=== PATIENT | male | born 1940 | race Asian ===

== ENCOUNTER → 2017-01-01 | Outpatient (CLI) | payer MEDICARE, MEDICAID ==
[~2017-01-01] MED LIST: ALLO100T30 PO; ASPI-621 PO; BOSE125T PO; CLOP75TA PO; FURO40TA6 PO; GEMF600T3 PO; INDO50CA PO; MACI10TA PO; METH4TAB PO; OMEP-110 PO; SPIR25TA PO
== END | disposition home or self-care (01) ==
LOC: CFH 09:59
PROVIDERS: ATTEND Internal Medicine Cardiovascular Disease
DX: I07.1 Rheumatic tricuspid insufficiency (principal); I35.8 Other nonrheumatic aortic valve disorders
CPT/HCPCS: 93306

== ENCOUNTER → 2017-10-21 | Outpatient (CLI) | payer MEDICARE, MEDICAID ==
[2017-10-21 15:55] LABS: ANION GAP 8 mmol/L (5-15); CALCIUM 8.7 mg/dL (8.5-10.1); CHLORIDE 101 mmol/L (98-107); CREATININE 1.31 mg/dL (0.7-1.3)
== END | disposition home or self-care (01) ==
LOC: CFH 14:25
PROVIDERS: ATTEND Internal Medicine Cardiovascular Disease
DX: I27.0 Primary pulmonary hypertension (principal); E78.2 Mixed hyperlipidemia; R06.02 Shortness of breath
CPT/HCPCS: 36415; 80048; 83880

== ENCOUNTER 2017-12-03 03:49 | Inpatient (IN) | payer MEDICARE, MEDICAID ==
[~2017-12-03] VITALS: Ht 165.1 cm; Wt 72.2 kg
[2017-12-03] MEDS ORDERED: SODIUM CHLORIDE FLUSH 10ML SYR IVF ONE (04:30)
[2017-12-03 04:38] LABS: ALANINE AMINOTRANSFERASE 51 U/L (12-78); ALBUMIN 3.9 g/dL (3.4-5.0); ANION GAP 4 mmol/L (5-15); CALCIUM 8.7 mg/dL (8.5-10.1); CHLORIDE 98 mmol/L (98-107); CREATININE 1.25 mg/dL (0.7-1.3)
[2017-12-03 04:42] LABS: ALKALINE PHOSPHATASE 105 U/L (45-117); BILIRUBIN,TOTAL 1.5 mg/dL (0.2-1.0); TOTAL PROTEIN 7.7 g/dL (6.4-8.2)
[2017-12-03 04:48] LABS: TROPONIN I 0.318 ng/mL (0.000-0.045)
[2017-12-03 04:58] LABS: MEAN CORPUSCULAR HEMOGLOBIN 31.6 pg (27.5-34.5); MEAN CORPUSCULAR HGB CONC 31.6 g/dL (33.2-36.2); RED BLOOD COUNT 6.28 x10^6/uL (4.38-5.82); RED CELL DISTRIBUTION WIDTH 15.4 % (9.4-14.8)
[2017-12-03] MEDS ORDERED: ASPIRIN 81 MG TABLET CHEW ONE (05:13)
[2017-12-03] MEDS ORDERED: ASPIRIN 81 MG TABLET CHEW PO ONE (05:30)
[2017-12-03] MEDS ORDERED: HEPARIN 5,000 UNITS/ML, 1ML IV ONE (05:30)
[2017-12-03 05:32] LABS: BASOPHILS # (AUTO) 0.02 x10^3/uL (0-0.1); BASOPHILS % (AUTO) 0 % (0-1); EOSINOPHILS # (AUTO) 0.18 x10^3/uL (0-0.4); EOSINOPHILS % (AUTO) 4 % (1-7); LYMPHOCYTES % (AUTO) 30 % (22-44); MD SCAN; MEAN PLATELET VOLUME 10.4 fL (7.4-10.4); MONOCYTES # (AUTO) 0.36 x10^3/uL (0.2-0.8); MONOCYTES % (AUTO) 8 % (2-9); NEUTROPHILS # (AUTO) 2.77 x10^3/uL (1.8-6.8); NEUTROPHILS % (AUTO) 59 % (42-75); PLATELET COUNT 74 x10^3/uL (130-400)
[2017-12-03] MEDS ORDERED: HEPARIN 5,000 UNITS/ML, 1ML ONE (05:34)
[2017-12-03] MEDS ORDERED: HEPARIN 25,000 UNITS/500ML PMX 500 ML ONE (05:35)
[2017-12-03 05:39] LABS: INTERNATIONAL NORMALIZED RATIO 1.04 (0.93-1.1)
[2017-12-03 05:41] LABS: PROTHROMBIN TIME 10.7 Seconds (9.6-11.5)
[2017-12-03] MEDS: HEPARIN 25,000 UNITS/500ML PMX 500 ML IV PRN (05:41)
[2017-12-03] MEDS ORDERED: SODIUM CHLORIDE 0.9% 1,000 ML IV SCH (06:22)
[2017-12-03] MEDS ORDERED: ONDANSETRON ODT 4 MG PO PRN (06:30)
[2017-12-03] MEDS ORDERED: ACETAMINOPHEN 325 MG TABLET PO PRN (06:30)
[2017-12-03] MEDS ORDERED: INDOMETHACIN 50 MG CAPSULE PO PRN (06:30)
[2017-12-03] MEDS ORDERED: OMEPRAZOLE 20 MG CAPSULE.DR ONE (07:57)
[2017-12-03] MEDS ORDERED: CLOPIDOGREL 75 MG TABLET ONE (07:57)
[2017-12-03 08:54] VITALS: BP 149/74
[2017-12-03] MEDS: ALLOPURINOL 100 MG TABLET PO SCH (10:03)
[2017-12-03] MEDS: CLOPIDOGREL 75 MG TABLET PO SCH (10:03)
[2017-12-03] MEDS: OMEPRAZOLE 20 MG CAPSULE.DR PO SCH ×2 (10:03→10:05)
[2017-12-03 10:16] LABS: TROPONIN I 0.298 ng/mL (0.000-0.045)
[2017-12-03] MEDS: DILTIAZEM 30 MG TABLET PO SCH ×3 (12:38→21:31)
[2017-12-03] MEDS: (Macitentan** (Opsumit**) 10 MG) PO SCH (12:38)
[2017-12-03] MEDS: HEPARIN 5,000 UNITS/ML, 1ML IV PRN ×2 (12:45→19:51)
[2017-12-03 13:45] VITALS: BP 150/86
[2017-12-03 16:10] VITALS: BP 123/68
[2017-12-03 16:12] LABS: TROPONIN I 0.276 ng/mL (0.000-0.045)
[2017-12-03 18:50] VITALS: BP 109/57
[2017-12-03] MEDS: ATORVASTATIN 40 MG TABLET PO SCH (21:31)
[2017-12-04 02:18] VITALS: BP 105/60
[2017-12-04 03:31] LABS: MEAN CORPUSCULAR HEMOGLOBIN 31.3 pg (27.5-34.5); MEAN CORPUSCULAR HGB CONC 31.6 g/dL (33.2-36.2); MEAN CORPUSCULAR VOLUME 99.2 fL (81-97); MEAN PLATELET VOLUME 10.5 fL (7.4-10.4); PLATELET COUNT 80 x10^3/uL (130-400); RED BLOOD COUNT 5.32 x10^6/uL (4.38-5.82); RED CELL DISTRIBUTION WIDTH 16.1 % (9.4-14.8)
[2017-12-04 03:33] LABS: ANION GAP 3 mmol/L (5-15); CALCIUM 8.2 mg/dL (8.5-10.1); CHLORIDE 101 mmol/L (98-107); CHOLESTEROL, TOTAL 122 mg/dL (140-239); CREATININE 1.04 mg/dL (0.7-1.3); TRIGLYCERIDES 108 mg/dL (50-200); VLDL CHOLESTEROL 22 mg/dL (0-25)
[2017-12-04] MEDS: HEPARIN 5,000 UNITS/ML, 1ML IV PRN (03:34)
[2017-12-04 03:35] LABS: CHOL/HDL RATIO 3.6; HDL CHOL % 28 % (26-37); HDL CHOLESTEROL (DIRECT) 34 mg/dL (40-60); LDL CHOLESTEROL,CALCULATED 66 mg/dL (54-169); LDL/HDL RATIO 1.9 (0.5-3.0)
[2017-12-04 03:39] LABS: BASOPHILS # (AUTO) 0.02 x10^3/uL (0-0.1); BASOPHILS % (AUTO) 0 % (0-1); EOSINOPHILS # (AUTO) 0.15 x10^3/uL (0-0.4); EOSINOPHILS % (AUTO) 3 % (1-7); LYMPHOCYTES # (AUTO) 1.07 x10^3/uL (1-3.4); LYMPHOCYTES % (AUTO) 23 % (22-44); MD SCAN; MONOCYTES # (AUTO) 0.39 x10^3/uL (0.2-0.8); MONOCYTES % (AUTO) 8 % (2-9); NEUTROPHILS # (AUTO) 3.02 x10^3/uL (1.8-6.8); NEUTROPHILS % (AUTO) 65 % (42-75)
[2017-12-04 07:40] VITALS: BP 134/78
[2017-12-04] MEDS: CLOPIDOGREL 75 MG TABLET PO SCH (08:52)
[2017-12-04] MEDS: ALLOPURINOL 100 MG TABLET PO SCH (08:52)
[2017-12-04] MEDS: DILTIAZEM 30 MG TABLET PO SCH ×3 (08:53→20:09)
[2017-12-04] MEDS: OMEPRAZOLE 20 MG CAPSULE.DR PO SCH (08:53)
[2017-12-04] MEDS: HEPARIN 25,000 UNITS/500ML PMX 500 ML IV PRN (09:00)
[2017-12-04] MEDS: (Macitentan** (Opsumit**) 10 MG) PO SCH (09:00)
[2017-12-04 13:10] VITALS: BP 123/71
[2017-12-04] MEDS ORDERED: OXYMETAZOLINE NASAL SPRAY 0.05%, 15ML NAS ONE (16:00)
[2017-12-04 19:53] VITALS: BP 115/83
[2017-12-04] MEDS: ATORVASTATIN 40 MG TABLET PO SCH (20:09)
[2017-12-04] MEDS ORDERED: FUROSEMIDE 20 MG/2 ML IV ONE (21:00)
[2017-12-04 21:01] VITALS: BP 148/84
[2017-12-05] MEDS ORDERED: AcetaZOLAMIDE INJ 500 MG IVPush ONE
[2017-12-05 04:26] LABS: ANION GAP 4 mmol/L (5-15); CALCIUM 8.3 mg/dL (8.5-10.1); CHLORIDE 102 mmol/L (98-107); CREATININE 1.01 mg/dL (0.7-1.3)
[2017-12-05 05:21] LABS: MEAN CORPUSCULAR HEMOGLOBIN 31.9 pg (27.5-34.5); MEAN CORPUSCULAR HGB CONC 31.8 g/dL (33.2-36.2); MEAN CORPUSCULAR VOLUME 100.5 fL (81-97); PLATELET COUNT 64 x10^3/uL (130-400); RED BLOOD COUNT 5.47 x10^6/uL (4.38-5.82); RED CELL DISTRIBUTION WIDTH 15.8 % (9.4-14.8)
[2017-12-05 06:02] LABS: BASOPHILS # (AUTO) 0.02 x10^3/uL (0-0.1); BASOPHILS % (AUTO) 0 % (0-1); EOSINOPHILS # (AUTO) 0.07 x10^3/uL (0-0.4); EOSINOPHILS % (AUTO) 2 % (1-7); LYMPHOCYTES # (AUTO) 0.92 x10^3/uL (1-3.4); LYMPHOCYTES % (AUTO) 20 % (22-44); MD SCAN; MONOCYTES # (AUTO) 0.42 x10^3/uL (0.2-0.8); MONOCYTES % (AUTO) 9 % (2-9); NEUTROPHILS # (AUTO) 3.18 x10^3/uL (1.8-6.8); NEUTROPHILS % (AUTO) 69 % (42-75)
[2017-12-05] MEDS: ALLOPURINOL 100 MG TABLET PO SCH (08:19)
[2017-12-05] MEDS: DILTIAZEM 30 MG TABLET PO SCH ×3 (08:19→20:03)
[2017-12-05] MEDS: RIVAROXABAN 20 MG TABLET PO SCH (08:19)
[2017-12-05] MEDS: (Macitentan** (Opsumit**) 10 MG) PO SCH (08:19)
[2017-12-05] MEDS: OMEPRAZOLE 20 MG CAPSULE.DR PO SCH (08:19)
[2017-12-05 08:50] LABS: FOLATE LEVEL 17.8 ng/mL (3.1-17.5); THYROID STIMULATING HORMONE 0.875 mIU/L (0.358-3.740)
[2017-12-05] MEDS ORDERED: AcetaZOLAMIDE INJ 500 MG IVPush SCH (09:30)
[2017-12-05] MEDS: AcetaZOLAMIDE INJ 500 MG IVPush SCH ×2 (12:00→23:50)
[2017-12-05] MEDS: FUROSEMIDE 20 MG/2 ML IV SCH ×2 (12:14→23:49)
[2017-12-05] MEDS: ATORVASTATIN 40 MG TABLET PO SCH (20:03)
[2017-12-06 04:43] LABS: MEAN CORPUSCULAR HEMOGLOBIN 31.5 pg (27.5-34.5); MEAN CORPUSCULAR HGB CONC 31.8 g/dL (33.2-36.2); RED BLOOD COUNT 5.71 x10^6/uL (4.38-5.82); RED CELL DISTRIBUTION WIDTH 15.8 % (9.4-14.8)
[2017-12-06 04:56] LABS: CHLORIDE 101 mmol/L (98-107)
[2017-12-06 05:02] LABS: ANION GAP 3 mmol/L (5-15); CALCIUM 8.9 mg/dL (8.5-10.1); CREATININE 1.26 mg/dL (0.7-1.3)
[2017-12-06 05:52] LABS: BASOPHILS # (AUTO) 0.01 x10^3/uL (0-0.1); BASOPHILS % (AUTO) 0 % (0-1); EOSINOPHILS # (AUTO) 0.14 x10^3/uL (0-0.4); EOSINOPHILS % (AUTO) 3 % (1-7); LYMPHOCYTES # (AUTO) 0.76 x10^3/uL (1-3.4); LYMPHOCYTES % (AUTO) 17 % (22-44); MD SCAN; MEAN PLATELET VOLUME 10.6 fL (7.4-10.4); MONOCYTES # (AUTO) 0.38 x10^3/uL (0.2-0.8); MONOCYTES % (AUTO) 9 % (2-9); NEUTROPHILS % (AUTO) 71 % (42-75); PLATELET COUNT 71 x10^3/uL (130-400)
[2017-12-06] MEDS: RIVAROXABAN 20 MG TABLET PO SCH (06:22)
[2017-12-06] MEDS: ALLOPURINOL 100 MG TABLET PO SCH (08:26)
[2017-12-06] MEDS: (Macitentan** (Opsumit**) 10 MG) PO SCH (08:26)
[2017-12-06] MEDS: OMEPRAZOLE 20 MG CAPSULE.DR PO SCH (08:26)
[2017-12-06] MEDS: DILTIAZEM 30 MG TABLET PO SCH ×3 (08:26→22:08)
[2017-12-06] MEDS: FUROSEMIDE 20 MG/2 ML IV SCH ×2 (11:12→22:07)
[2017-12-06] MEDS: AMIODARONE 200 MG TABLET PO SCH ×2 (11:12→22:07)
[2017-12-06] MEDS: AcetaZOLAMIDE INJ 500 MG IVPush SCH ×2 (11:13→22:07)
[2017-12-06 12:25] VITALS: BP 122/65
[2017-12-06 20:00] VITALS: BP 125/69
[2017-12-06] MEDS: ATORVASTATIN 40 MG TABLET PO SCH (22:07)
[2017-12-07 02:00] VITALS: BP 117/69
[2017-12-07 05:11] LABS: ANION GAP 5 mmol/L (5-15); CALCIUM 8.4 mg/dL (8.5-10.1); CHLORIDE 105 mmol/L (98-107); CREATININE 1.27 mg/dL (0.7-1.3)
[2017-12-07 06:55] VITALS: BP 127/70
[2017-12-07] MEDS: DILTIAZEM 30 MG TABLET PO SCH ×3 (09:09→22:00)
[2017-12-07] MEDS: RIVAROXABAN 20 MG TABLET PO SCH (09:09)
[2017-12-07] MEDS: OMEPRAZOLE 20 MG CAPSULE.DR PO SCH (09:09)
[2017-12-07] MEDS: ALLOPURINOL 100 MG TABLET PO SCH (09:09)
[2017-12-07] MEDS: AMIODARONE 200 MG TABLET PO SCH ×2 (09:09→21:59)
[2017-12-07] MEDS: (Macitentan** (Opsumit**) 10 MG) PO SCH (09:10)
[2017-12-07] MEDS: FUROSEMIDE 20 MG/2 ML IV SCH ×2 (09:13→21:59)
[2017-12-07 10:43] VITALS: BP 127/74
[2017-12-07] MEDS: AcetaZOLAMIDE INJ 500 MG IVPush SCH ×2 (10:45→22:08)
[2017-12-07 14:15] VITALS: BP 105/62
[2017-12-07 17:14] VITALS: BP 107/71
[2017-12-07 19:12] VITALS: BP 102/72
[2017-12-07] MEDS: ATORVASTATIN 40 MG TABLET PO SCH (21:59)
[2017-12-08 01:03] VITALS: BP 110/70
[2017-12-08 05:18] LABS: MEAN CORPUSCULAR HEMOGLOBIN 31.5 pg (27.5-34.5); MEAN CORPUSCULAR VOLUME 98.2 fL (81-97); MEAN PLATELET VOLUME 9.9 fL (7.4-10.4); PLATELET COUNT 81 x10^3/uL (130-400); RED BLOOD COUNT 5.85 x10^6/uL (4.38-5.82); RED CELL DISTRIBUTION WIDTH 15.8 % (9.4-14.8)
[2017-12-08 05:26] LABS: ANION GAP 5 mmol/L (5-15); CALCIUM 8.6 mg/dL (8.5-10.1); CHLORIDE 107 mmol/L (98-107)
[2017-12-08 05:28] LABS: CREATININE 1.46 mg/dL (0.7-1.3)
[2017-12-08 05:51] LABS: BASOPHILS # (AUTO) 0.02 x10^3/uL (0-0.1); BASOPHILS % (AUTO) 0 % (0-1); EOSINOPHILS # (AUTO) 0.18 x10^3/uL (0-0.4); EOSINOPHILS % (AUTO) 4 % (1-7); LYMPHOCYTES # (AUTO) 0.88 x10^3/uL (1-3.4); LYMPHOCYTES % (AUTO) 18 % (22-44); MD SCAN; MONOCYTES % (AUTO) 8 % (2-9); NEUTROPHILS # (AUTO) 3.33 x10^3/uL (1.8-6.8); NEUTROPHILS % (AUTO) 69 % (42-75)
[2017-12-08] MEDS: RIVAROXABAN 20 MG TABLET PO SCH (05:53)
[2017-12-08 08:08] VITALS: BP 119/70
[2017-12-08] MEDS: DILTIAZEM 30 MG TABLET PO SCH ×3 (09:00→21:00)
[2017-12-08] MEDS: (Macitentan** (Opsumit**) 10 MG) PO SCH (09:00)
[2017-12-08] MEDS: FUROSEMIDE 20 MG/2 ML IV SCH ×2 (10:39→21:18)
[2017-12-08] MEDS: AMIODARONE 200 MG TABLET PO SCH ×2 (10:40→21:17)
[2017-12-08] MEDS: ALLOPURINOL 100 MG TABLET PO SCH (10:41)
[2017-12-08] MEDS: OMEPRAZOLE 20 MG CAPSULE.DR PO SCH (10:41)
[2017-12-08] MEDS: AcetaZOLAMIDE INJ 500 MG IVPush SCH ×2 (10:42→22:46)
[2017-12-08 14:00] VITALS: BP 126/72
[2017-12-08] MEDS: POLYETHYLENE GLYCOL 17 GM PACKET PO PRN (17:07)
[2017-12-08 19:40] VITALS: BP 123/70
[2017-12-08] MEDS: ATORVASTATIN 40 MG TABLET PO SCH (21:17)
[2017-12-09 02:00] VITALS: BP 111/56
[2017-12-09 05:40] LABS: CHLORIDE 106 mmol/L (98-107)
[2017-12-09 05:44] LABS: ANION GAP 4 mmol/L (5-15); CALCIUM 8.5 mg/dL (8.5-10.1); CREATININE 1.65 mg/dL (0.7-1.3); MEAN CORPUSCULAR HEMOGLOBIN 31.6 pg (27.5-34.5); MEAN CORPUSCULAR HGB CONC 31.9 g/dL (33.2-36.2); RED BLOOD COUNT 5.83 x10^6/uL (4.38-5.82); RED CELL DISTRIBUTION WIDTH 15.4 % (9.4-14.8)
[2017-12-09] MEDS: RIVAROXABAN 20 MG TABLET PO SCH (06:04)
[2017-12-09 06:19] LABS: BASOPHILS # (AUTO) 0.02 x10^3/uL (0-0.1); BASOPHILS % (AUTO) 0 % (0-1); EOSINOPHILS # (AUTO) 0.23 x10^3/uL (0-0.4); EOSINOPHILS % (AUTO) 5 % (1-7); LYMPHOCYTES # (AUTO) 0.77 x10^3/uL (1-3.4); LYMPHOCYTES % (AUTO) 16 % (22-44); MD SCAN; MEAN PLATELET VOLUME 10.1 fL (7.4-10.4); MONOCYTES # (AUTO) 0.42 x10^3/uL (0.2-0.8); MONOCYTES % (AUTO) 9 % (2-9); NEUTROPHILS # (AUTO) 3.42 x10^3/uL (1.8-6.8); NEUTROPHILS % (AUTO) 71 % (42-75); PLATELET COUNT 87 x10^3/uL (130-400)
[2017-12-09] MEDS: AMIODARONE 200 MG TABLET PO SCH ×2 (09:15→20:00)
[2017-12-09] MEDS: DILTIAZEM 30 MG TABLET PO SCH ×3 (09:15→20:01)
[2017-12-09] MEDS: OMEPRAZOLE 20 MG CAPSULE.DR PO SCH (09:15)
[2017-12-09] MEDS: ALLOPURINOL 100 MG TABLET PO SCH (09:15)
[2017-12-09] MEDS: LACTOBACILLUS CHEW TABLET PO SCH ×3 (09:15→20:00)
[2017-12-09] MEDS: (Macitentan** (Opsumit**) 10 MG) PO SCH (09:15)
[2017-12-09 09:20] VITALS: BP 114/69
[2017-12-09] MEDS ORDERED: MAGNESIUM CITRATE 300ML ORAL SOL PO ONE (12:30)
[2017-12-09] MEDS ORDERED: BISACODYL 10 MG SUPP PR ONE (12:30)
[2017-12-09 13:10] VITALS: BP 136/79
[2017-12-09] MEDS: AcetaZOLAMIDE INJ 500 MG IVPush SCH (13:10)
[2017-12-09] MEDS: FUROSEMIDE 20 MG/2 ML IV SCH (13:10)
[2017-12-09 16:31] LABS: MICROSCOPIC AUTO
[2017-12-09 16:32] LABS: CULTURE INDICATED? NO
[2017-12-09 19:36] VITALS: BP 110/66
[2017-12-09] MEDS: ATORVASTATIN 40 MG TABLET PO SCH (20:01)
[2017-12-10 02:24] VITALS: BP 113/68
[2017-12-10] MEDS: RIVAROXABAN 15 MG TABLET PO SCH (05:18)
[2017-12-10 05:22] LABS: ANION GAP 4 mmol/L (5-15); CHLORIDE 105 mmol/L (98-107)
[2017-12-10 05:28] LABS: % IRON SATURATION 23 % (20-55); CREATININE 1.34 mg/dL (0.7-1.3); IRON LEVEL 84 mcg/dL (65-175); TOTAL IRON BINDING CAPACITY 371 mcg/dL (250-450)
[2017-12-10 07:10] VITALS: BP 123/72
[2017-12-10] MEDS: (Macitentan** (Opsumit**) 10 MG) PO SCH (09:00)
[2017-12-10] MEDS: OMEPRAZOLE 20 MG CAPSULE.DR PO SCH (09:27)
[2017-12-10] MEDS: AMIODARONE 200 MG TABLET PO SCH ×2 (09:28→22:01)
[2017-12-10] MEDS: LACTOBACILLUS CHEW TABLET PO SCH ×3 (09:28→22:00)
[2017-12-10] MEDS: DILTIAZEM 30 MG TABLET PO SCH ×3 (09:28→22:00)
[2017-12-10] MEDS: ALLOPURINOL 100 MG TABLET PO SCH (09:33)
[2017-12-10 12:58] VITALS: BP 154/73
[2017-12-10 18:56] VITALS: BP 118/66
[2017-12-10] MEDS: ATORVASTATIN 40 MG TABLET PO SCH (22:00)
[2017-12-11 01:07] VITALS: BP 119/68
[2017-12-11 04:48] LABS: MEAN CORPUSCULAR HEMOGLOBIN 31.9 pg (27.5-34.5); MEAN CORPUSCULAR VOLUME 99.5 fL (81-97); MEAN PLATELET VOLUME 9.8 fL (7.4-10.4); PLATELET COUNT 94 x10^3/uL (130-400); RED BLOOD COUNT 5.66 x10^6/uL (4.38-5.82); RED CELL DISTRIBUTION WIDTH 15.1 % (9.4-14.8)
[2017-12-11 04:53] LABS: ANION GAP 1 mmol/L (5-15); CALCIUM 8.5 mg/dL (8.5-10.1); CHLORIDE 106 mmol/L (98-107); CREATININE 1.16 mg/dL (0.7-1.3)
[2017-12-11] MEDS: RIVAROXABAN 15 MG TABLET PO SCH (05:56)
[2017-12-11 06:06] LABS: MD SCAN
[2017-12-11 06:07] LABS: BASOPHILS # (AUTO) 0.02 x10^3/uL (0-0.1); BASOPHILS % (AUTO) 0 % (0-1); EOSINOPHILS % (AUTO) 4 % (1-7); LYMPHOCYTES # (AUTO) 0.82 x10^3/uL (1-3.4); LYMPHOCYTES % (AUTO) 17 % (22-44); MONOCYTES # (AUTO) 0.41 x10^3/uL (0.2-0.8); MONOCYTES % (AUTO) 8 % (2-9); NEUTROPHILS # (AUTO) 3.42 x10^3/uL (1.8-6.8); NEUTROPHILS % (AUTO) 70 % (42-75)
[2017-12-11 08:36] VITALS: BP 125/76
[2017-12-11] MEDS: LACTOBACILLUS CHEW TABLET PO SCH ×3 (09:38→20:09)
[2017-12-11] MEDS: AMIODARONE 200 MG TABLET PO SCH ×2 (09:38→20:10)
[2017-12-11] MEDS: OMEPRAZOLE 20 MG CAPSULE.DR PO SCH (09:38)
[2017-12-11] MEDS: DILTIAZEM 30 MG TABLET PO SCH ×3 (09:38→20:10)
[2017-12-11] MEDS: ALLOPURINOL 100 MG TABLET PO SCH (09:39)
[2017-12-11] MEDS: (Macitentan** (Opsumit**) 10 MG) PO SCH (09:39)
[2017-12-11] MEDS: POLYETHYLENE GLYCOL 17 GM PACKET PO PRN (11:57)
[2017-12-11 12:52] VITALS: BP 146/74
[2017-12-11] MEDS: FUROSEMIDE 20 MG TABLET PO SCH (13:59)
[2017-12-11 20:02] VITALS: BP 133/60
[2017-12-11] MEDS: ATORVASTATIN 40 MG TABLET PO SCH (20:09)
[2017-12-12 01:00] VITALS: BP 127/72
[2017-12-12] MEDS: RIVAROXABAN 15 MG TABLET PO SCH (05:56)
[2017-12-12 08:00] VITALS: BP 131/66
[2017-12-12 08:20] VITALS: BP 121/64
[2017-12-12 09:17] LABS: ANION GAP 4 mmol/L (5-15); CHLORIDE 103 mmol/L (98-107); CREATININE 1.29 mg/dL (0.7-1.3)
[2017-12-12] MEDS: ALLOPURINOL 100 MG TABLET PO SCH (09:20)
[2017-12-12] MEDS: AMIODARONE 200 MG TABLET PO SCH ×2 (09:20→20:43)
[2017-12-12] MEDS: LACTOBACILLUS CHEW TABLET PO SCH ×3 (09:20→20:42)
[2017-12-12] MEDS: DILTIAZEM 30 MG TABLET PO SCH ×3 (09:20→20:43)
[2017-12-12] MEDS: (Macitentan** (Opsumit**) 10 MG) PO SCH (09:21)
[2017-12-12] MEDS: OMEPRAZOLE 20 MG CAPSULE.DR PO SCH (09:21)
[2017-12-12] MEDS: FUROSEMIDE 20 MG TABLET PO SCH (09:21)
[2017-12-12 14:00] VITALS: BP 153/71
[2017-12-12 18:39] VITALS: BP 122/66
[2017-12-12] MEDS: ATORVASTATIN 40 MG TABLET PO SCH (20:43)
[2017-12-13 00:57] VITALS: BP 108/59
[2017-12-13] MEDS: RIVAROXABAN 15 MG TABLET PO SCH (06:26)
[2017-12-13 07:41] VITALS: BP 151/71
[2017-12-13] MEDS ORDERED: FUROSEMIDE 40 MG TABLET PO SCH ×2 (09:00)
[2017-12-13] MEDS: LACTOBACILLUS CHEW TABLET PO SCH (09:07)
[2017-12-13] MEDS: AMIODARONE 200 MG TABLET PO SCH (09:07)
[2017-12-13] MEDS: DILTIAZEM 30 MG TABLET PO SCH (09:07)
[2017-12-13] MEDS: ALLOPURINOL 100 MG TABLET PO SCH (09:08)
[2017-12-13] MEDS: (Macitentan** (Opsumit**) 10 MG) PO SCH (09:09)
[2017-12-13] MEDS: OMEPRAZOLE 20 MG CAPSULE.DR PO SCH (09:13)
[2017-12-13] MEDS ORDERED: ATOR40TA78 PO (10:57)
[2017-12-13] MEDS ORDERED: AMIO200T42 PO (10:57)
[2017-12-13] MEDS ORDERED: DILT30TA27 PO (10:57)
[2017-12-13] MEDS ORDERED: RIVA15TA PO (10:57)
[2017-12-13] MEDS ORDERED: ACID1TAB7 PO (10:57)
[2017-12-13] MEDS ORDERED: FURO40TA6 PO (10:57)
[2017-12-14] MEDS ORDERED: AMIODARONE 200 MG TABLET PO SCH (09:00)
== END 2017-12-13 12:56 | disposition home health service (06) | DRG 280 ==
LOC: ED 06:02 → SUATTDRO 06:21 → EDIP 06:34 → 5SO 08:47 → CCU 12-04 22:14 → 5SO 12-06 12:05 → DCLOUNGE 12-13 12:40
PROVIDERS: ADMIT Hospitalist; ATTEND Hospitalist
DX: I13.0 Hypertensive heart and chronic kidney disease with heart failure and stage 1 through stage 4 chronic kidney disease, or unspecified chronic kidney disease (principal); I21.4 Non-ST elevation (NSTEMI) myocardial infarction; I50.33 Acute on chronic diastolic (congestive) heart failure; J96.21 Acute and chronic respiratory failure with hypoxia; J18.9 Pneumonia, unspecified organism; N17.9 Acute kidney failure, unspecified; D68.69 Other thrombophilia; E87.4 Mixed disorder of acid-base balance; I47.2 Ventricular tachycardia; J44.0 Chronic obstructive pulmonary disease with (acute) lower respiratory infection; I48.0 Paroxysmal atrial fibrillation; I27.29 Other secondary pulmonary hypertension; D69.6 Thrombocytopenia, unspecified; D75.1 Secondary polycythemia; D75.89 Other specified diseases of blood and blood-forming organs; E78.5 Hyperlipidemia, unspecified; E83.41 Hypermagnesemia; E87.5 Hyperkalemia; I08.1 Rheumatic disorders of both mitral and tricuspid valves; I50.82 Biventricular heart failure; K59.00 Constipation, unspecified; M10.9 Gout, unspecified; N18.2 Chronic kidney disease, stage 2 (mild); T50.2X5A Adverse effect of carbonic-anhydrase inhibitors, benzothiadiazides and other diuretics, initial encounter; Z51.5 Encounter for palliative care; Z79.01 Long term (current) use of anticoagulants; Z79.82 Long term (current) use of aspirin; Z87.891 Personal history of nicotine dependence; Z99.81 Dependence on supplemental oxygen; I27.81 Cor pulmonale (chronic)
CPT/HCPCS: 36415; 36600; 71045; 76770; 80048; 80053; 80061; 81001; 82043; 82570; 82607; 82746; 82803; 83540; 83550; 83735; 84100; 84156; 84443; 84484; 85025; 85379; 85520; 85610; 85730; 87081; 93005; 93306; 94660; J1644; J1120; J1940; J7030

== ENCOUNTER 2018-11-21 15:23 | Inpatient (IN) | payer OTHER, MEDICAID ==
[~2018-11-21] VITALS: Ht 162.6 cm; Wt 67.0 kg
[~2018-11-21 15:23] MED LIST changes: +ACID1TAB7 PO; +AMIO200T42 PO; -ASPI-621 PO; +ASPI81TA45 PO; +ATOR40TA78 PO; +DILT30TA27 PO; -GEMF600T3 PO; +GEMF600T8 PO; -INDO50CA PO; +INDO50CA5 PO; +RIVA15TA PO
[2018-11-21 16:02] LABS: MEAN CORPUSCULAR HEMOGLOBIN 33.2 pg (27.5-34.5); MEAN CORPUSCULAR HGB CONC 32.6 g/dL (33.2-36.2); MEAN CORPUSCULAR VOLUME 101.8 fL (81-97); MEAN PLATELET VOLUME 7.7 fL (7.4-10.4); PLATELET COUNT 156 x10^3/uL (130-400); RED BLOOD COUNT 5.76 x10^6/uL (4.38-5.82); RED CELL DISTRIBUTION WIDTH 16.7 % (9.4-14.8)
[2018-11-21 16:14] LABS: ALANINE AMINOTRANSFERASE 62 U/L (12-78); ALBUMIN 3.7 g/dL (3.4-5.0); ANION GAP 7 mmol/L (5-15); CALCIUM 8.5 mg/dL (8.5-10.1); CHLORIDE 103 mmol/L (98-107); CREATININE 1.47 mg/dL (0.7-1.3)
[2018-11-21 16:19] LABS: ALKALINE PHOSPHATASE 89 U/L (45-117); BILIRUBIN,TOTAL 1.3 mg/dL (0.2-1.0); TOTAL PROTEIN 6.8 g/dL (6.4-8.2)
[2018-11-21 16:24] LABS: TROPONIN I 0.142 ng/mL (0.000-0.045)
--- NOTE | 2018-11-21 16:25 | NUR ---
LAB CALLED WITH CRITICAL RESULT OF TROP 0.142. ERP NOTIFIED.
[2018-11-21 16:31] LABS: BASOPHILS # (AUTO) 0.04 x10^3/uL (0-0.1); BASOPHILS % (AUTO) 0 % (0-1); EOSINOPHILS % (AUTO) 0 % (1-7); LYMPHOCYTES # (AUTO) 0.89 x10^3/uL (1-3.4); LYMPHOCYTES % (AUTO) 6 % (22-44); MD SCAN; MONOCYTES % (AUTO) 4 % (2-9); NEUTROPHILS # (AUTO) 12.68 x10^3/uL (1.8-6.8); NEUTROPHILS % (AUTO) 89 % (42-75)
[2018-11-21] MEDS ORDERED: AMPICILLIN/SULBACTAM 3 GM in SODIUM CHLORIDE 0.9% 100 ML IV ONE (17:00)
[2018-11-21 17:01] LABS: INTERNATIONAL NORMALIZED RATIO 1.21 (0.93-1.1); PROTHROMBIN TIME 12.6 Seconds (9.6-11.5)
[2018-11-21] MEDS ORDERED: SODIUM CHLORIDE 0.9% 1,000 ML IV SCH (17:58)
[2018-11-21] MEDS ORDERED: HYDROcodone/APAP 5/325 TABLET PO PRN (18:00)
[2018-11-21] MEDS ORDERED: LABETALOL 5MG/ML, 20ML IVPush PRN (18:00)
[2018-11-21] MEDS ORDERED: ONDANSETRON 2MG/ML, 2ML IVPush PRN (18:00)
[2018-11-21] MEDS ORDERED: ALBUTEROL/IPRATROPIUM 2.5MG/0.5MG, 3 ML ONE (19:24)
[2018-11-21] MEDS ORDERED: ALBUTEROL/IPRATROPIUM 2.5MG/0.5MG, 3 ML NPPB PRN (19:30)
[2018-11-21] MEDS: ALBUTEROL/IPRATROPIUM 2.5MG/0.5MG, 3 ML NPPB SCH (19:30)
[2018-11-21] MEDS: LACTOBACILLUS CHEW TABLET PO SCH (21:05)
[2018-11-21] MEDS: ATORVASTATIN 40 MG TABLET PO SCH (21:05)
[2018-11-21 21:10] VITALS: BP 127/83
[2018-11-21] MEDS ORDERED: PRED5TAB19 PO (21:25)
[2018-11-21] MEDS ORDERED: DILTIAZEM 30 MG TABLET PO ONE (22:00)
[2018-11-21 22:50] VITALS: BP 124/71
[2018-11-21] MEDS: DILTIAZEM 30 MG TABLET PO SCH (23:30)
[2018-11-22 01:02] VITALS: BP 121/74
[2018-11-22] MEDS: AMPICILLIN/SULBACTAM 1,500 MG in SODIUM CHLORIDE 0.9% 50 ML IV SCH ×3 (01:03→15:30)
[2018-11-22 04:53] LABS: BASOPHILS # (AUTO) 0.06 x10^3/uL (0-0.1); BASOPHILS % (AUTO) 0 % (0-1); EOSINOPHILS # (AUTO) 0.01 x10^3/uL (0-0.4); EOSINOPHILS % (AUTO) 0 % (1-7); LYMPHOCYTES # (AUTO) 0.52 x10^3/uL (1-3.4); LYMPHOCYTES % (AUTO) 4 % (22-44); MD NO; MEAN CORPUSCULAR HEMOGLOBIN 33.1 pg (27.5-34.5); MEAN CORPUSCULAR HGB CONC 32.6 g/dL (33.2-36.2); MEAN CORPUSCULAR VOLUME 101.7 fL (81-97); MEAN PLATELET VOLUME 8.1 fL (7.4-10.4); MONOCYTES # (AUTO) 0.92 x10^3/uL (0.2-0.8); MONOCYTES % (AUTO) 6 % (2-9); NEUTROPHILS % (AUTO) 90 % (42-75); PLATELET COUNT 113 x10^3/uL (130-400); RED BLOOD COUNT 5.15 x10^6/uL (4.38-5.82); RED CELL DISTRIBUTION WIDTH 16.8 % (9.4-14.8)
[2018-11-22 05:04] LABS: CHLORIDE 106 mmol/L (98-107)
[2018-11-22 05:09] LABS: ANION GAP 5 mmol/L (5-15); CREATININE 1.12 mg/dL (0.7-1.3)
[2018-11-22] MEDS ORDERED: ASPIRIN 81 MG TABLET EC PO SCH (06:00)
[2018-11-22] MEDS: RIVAROXABAN 15 MG TABLET PO SCH (06:04)
[2018-11-22] MEDS: ALBUTEROL/IPRATROPIUM 2.5MG/0.5MG, 3 ML NPPB SCH ×4 (06:20→20:00)
[2018-11-22 07:00] VITALS: BP 118/68
[2018-11-22] MEDS: LACTOBACILLUS CHEW TABLET PO SCH ×3 (08:11→20:33)
[2018-11-22] MEDS: OMEPRAZOLE 20 MG CAPSULE.DR PO SCH (08:11)
[2018-11-22] MEDS: DILTIAZEM 30 MG TABLET PO SCH ×3 (08:12→20:33)
[2018-11-22] MEDS: AMIODARONE 200 MG TABLET PO SCH (08:12)
[2018-11-22 15:32] VITALS: BP 126/76
[2018-11-22 19:20] VITALS: BP 121/72
[2018-11-22] MEDS: ATORVASTATIN 40 MG TABLET PO SCH (20:32)
[2018-11-23 01:05] VITALS: BP 126/78
[2018-11-23] MEDS: AMPICILLIN/SULBACTAM 1,500 MG in SODIUM CHLORIDE 0.9% 50 ML IV SCH ×2 (01:44→09:27)
[2018-11-23 05:04] LABS: BASOPHILS # (AUTO) 0.09 x10^3/uL (0-0.1); BASOPHILS % (AUTO) 1 % (0-1); EOSINOPHILS # (AUTO) 0.04 x10^3/uL (0-0.4); EOSINOPHILS % (AUTO) 0 % (1-7); LYMPHOCYTES # (AUTO) 1.02 x10^3/uL (1-3.4); LYMPHOCYTES % (AUTO) 9 % (22-44); MD NO; MEAN CORPUSCULAR HEMOGLOBIN 33.5 pg (27.5-34.5); MEAN CORPUSCULAR HGB CONC 32.7 g/dL (33.2-36.2); MEAN CORPUSCULAR VOLUME 102.3 fL (81-97); MONOCYTES # (AUTO) 0.51 x10^3/uL (0.2-0.8); MONOCYTES % (AUTO) 5 % (2-9); NEUTROPHILS # (AUTO) 9.22 x10^3/uL (1.8-6.8); NEUTROPHILS % (AUTO) 85 % (42-75); PLATELET COUNT 102 x10^3/uL (130-400); RED BLOOD COUNT 5.15 x10^6/uL (4.38-5.82); RED CELL DISTRIBUTION WIDTH 16.6 % (9.4-14.8)
[2018-11-23 05:12] LABS: ANION GAP 4 mmol/L (5-15); CALCIUM 8.2 mg/dL (8.5-10.1); CHLORIDE 108 mmol/L (98-107)
[2018-11-23 05:14] LABS: CREATININE 0.97 mg/dL (0.7-1.3)
[2018-11-23] MEDS: RIVAROXABAN 15 MG TABLET PO SCH (06:02)
[2018-11-23 06:40] VITALS: BP 109/69
[2018-11-23] MEDS: ALBUTEROL/IPRATROPIUM 2.5MG/0.5MG, 3 ML NPPB SCH ×4 (07:45→19:43)
[2018-11-23] MEDS: LACTOBACILLUS CHEW TABLET PO SCH ×3 (09:25→20:53)
[2018-11-23] MEDS: OMEPRAZOLE 20 MG CAPSULE.DR PO SCH (09:26)
[2018-11-23] MEDS: DILTIAZEM 30 MG TABLET PO SCH ×3 (09:26→20:52)
[2018-11-23] MEDS: AMIODARONE 200 MG TABLET PO SCH (09:26)
[2018-11-23 14:27] VITALS: BP 110/73
[2018-11-23] MEDS: AMPICILLIN/SULBACTAM 3 GM in SODIUM CHLORIDE 0.9% 100 ML IV SCH ×2 (16:15→22:22)
[2018-11-23 20:11] VITALS: BP 123/71
[2018-11-23] MEDS: ATORVASTATIN 40 MG TABLET PO SCH (20:53)
[2018-11-23] MEDS ORDERED: OMNIPAQUE 350 MG/ML, 75ML BOTTLE ONE (21:45)
[2018-11-24 02:20] VITALS: BP 132/74
[2018-11-24] MEDS: AMPICILLIN/SULBACTAM 3 GM in SODIUM CHLORIDE 0.9% 100 ML IV SCH ×4 (04:10→22:40)
[2018-11-24] MEDS: RIVAROXABAN 15 MG TABLET PO SCH (05:06)
[2018-11-24] MEDS: AMIODARONE 200 MG TABLET PO SCH (09:31)
[2018-11-24] MEDS: LACTOBACILLUS CHEW TABLET PO SCH ×3 (09:31→20:34)
[2018-11-24] MEDS: DILTIAZEM 30 MG TABLET PO SCH ×3 (09:31→20:34)
[2018-11-24] MEDS: OMEPRAZOLE 20 MG CAPSULE.DR PO SCH (09:31)
[2018-11-24] MEDS: FUROSEMIDE 40 MG TABLET PO SCH (09:31)
[2018-11-24 09:39] VITALS: BP 124/75
[2018-11-24] MEDS: LINEZOLID PMX 600MG/300ML 300 ML IV SCH (12:40)
[2018-11-24 14:11] VITALS: BP 106/70
[2018-11-24] MEDS: IPRATROPIUM 0.5 MG/2.5 ML INHA NPPB SCH ×2 (14:41→21:00)
[2018-11-24] MEDS: ACETAMINOPHEN 325 MG TABLET PO PRN (17:40)
[2018-11-24 18:56] VITALS: BP 114/67
[2018-11-24] MEDS: ATORVASTATIN 40 MG TABLET PO SCH (20:34)
[2018-11-25 00:02] VITALS: BP 126/76
[2018-11-25] MEDS: LINEZOLID PMX 600MG/300ML 300 ML IV SCH (00:12)
[2018-11-25] MEDS: IPRATROPIUM 0.5 MG/2.5 ML INHA NPPB SCH ×4 (02:13→19:15)
[2018-11-25] MEDS: AMPICILLIN/SULBACTAM 3 GM in SODIUM CHLORIDE 0.9% 100 ML IV SCH ×4 (04:27→23:08)
[2018-11-25] MEDS: RIVAROXABAN 15 MG TABLET PO SCH (05:39)
[2018-11-25] MEDS: ALBUTEROL SULFATE 2.5 MG/3 ML NPPB PRN (07:46)
[2018-11-25 08:04] VITALS: BP 127/78
[2018-11-25] MEDS: LACTOBACILLUS CHEW TABLET PO SCH ×3 (09:26→20:25)
[2018-11-25] MEDS: AMIODARONE 200 MG TABLET PO SCH (09:26)
[2018-11-25] MEDS: OMEPRAZOLE 20 MG CAPSULE.DR PO SCH (09:26)
[2018-11-25] MEDS: DILTIAZEM 30 MG TABLET PO SCH ×3 (09:26→20:25)
[2018-11-25] MEDS ORDERED: PHARMACOKINETIC CONSULTATION MC ONE (10:00)
[2018-11-25] MEDS ORDERED: VANCOMYCIN PMX 1GM/200ML 200 ML IV ONE (10:00)
[2018-11-25] MEDS ORDERED: PHARMACOKINETIC MONITORING MC PRN (10:00)
[2018-11-25] MEDS ORDERED: VANCOMYCIN PER PHARMACY MC PRN (10:00)
[2018-11-25] MEDS ORDERED: VANCOMYCIN 1,300 MG in SODIUM CHLORIDE 0.9% 250 ML IV SCH (11:00)
[2018-11-25] MEDS: ACETAMINOPHEN 325 MG TABLET PO PRN ×2 (11:09→17:24)
[2018-11-25] MEDS: SENNA/DOCUSATE TABLET PO SCH (12:28)
[2018-11-25 13:20] VITALS: BP 106/68
[2018-11-25 19:40] VITALS: BP 128/78
[2018-11-25] MEDS: ATORVASTATIN 40 MG TABLET PO SCH (20:25)
[2018-11-26 00:46] VITALS: BP 113/70
[2018-11-26] MEDS: IPRATROPIUM 0.5 MG/2.5 ML INHA NPPB SCH ×4 (03:00→21:14)
[2018-11-26 04:53] LABS: BASOPHILS # (AUTO) 0.01 x10^3/uL (0-0.1); BASOPHILS % (AUTO) 0 % (0-1); EOSINOPHILS # (AUTO) 0.04 x10^3/uL (0-0.4); EOSINOPHILS % (AUTO) 1 % (1-7); LYMPHOCYTES # (AUTO) 0.61 x10^3/uL (1-3.4); LYMPHOCYTES % (AUTO) 11 % (22-44); MD NO; MEAN CORPUSCULAR HEMOGLOBIN 32.2 pg (27.5-34.5); MEAN CORPUSCULAR HGB CONC 31.7 g/dL (33.2-36.2); MEAN CORPUSCULAR VOLUME 101.4 fL (81-97); MEAN PLATELET VOLUME 7.5 fL (7.4-10.4); MONOCYTES # (AUTO) 0.54 x10^3/uL (0.2-0.8); MONOCYTES % (AUTO) 10 % (2-9); NEUTROPHILS # (AUTO) 4.39 x10^3/uL (1.8-6.8); NEUTROPHILS % (AUTO) 79 % (42-75); PLATELET COUNT 112 x10^3/uL (130-400); RED BLOOD COUNT 4.65 x10^6/uL (4.38-5.82)
[2018-11-26 05:00] LABS: ALANINE AMINOTRANSFERASE 38 U/L (12-78); ALBUMIN 1.9 g/dL (3.4-5.0); ANION GAP 2 mmol/L (5-15); CHLORIDE 107 mmol/L (98-107); CREATININE 0.81 mg/dL (0.7-1.3)
[2018-11-26 05:02] LABS: ALKALINE PHOSPHATASE 82 U/L (45-117); BILIRUBIN,TOTAL 1.3 mg/dL (0.2-1.0)
[2018-11-26] MEDS: AMPICILLIN/SULBACTAM 3 GM in SODIUM CHLORIDE 0.9% 100 ML IV SCH ×4 (05:18→23:57)
[2018-11-26] MEDS: RIVAROXABAN 15 MG TABLET PO SCH (05:18)
[2018-11-26 07:47] VITALS: BP 110/66
[2018-11-26] MEDS: OMEPRAZOLE 20 MG CAPSULE.DR PO SCH (09:24)
[2018-11-26] MEDS: LACTOBACILLUS CHEW TABLET PO SCH ×3 (09:24→21:16)
[2018-11-26] MEDS: FUROSEMIDE 40 MG TABLET PO SCH (09:25)
[2018-11-26] MEDS: AMIODARONE 200 MG TABLET PO SCH (09:25)
[2018-11-26] MEDS: DILTIAZEM 30 MG TABLET PO SCH ×3 (09:25→21:16)
[2018-11-26] MEDS: SENNA/DOCUSATE TABLET PO SCH (09:25)
[2018-11-26] MEDS: VANCOMYCIN 1,300 MG in SODIUM CHLORIDE 0.9% 250 ML IV SCH (13:45)
[2018-11-26 14:00] VITALS: BP 106/67
[2018-11-26 19:04] VITALS: BP 121/77
[2018-11-26] MEDS: ATORVASTATIN 40 MG TABLET PO SCH (21:16)
[2018-11-27 00:45] VITALS: BP 127/78
[2018-11-27] MEDS: IPRATROPIUM 0.5 MG/2.5 ML INHA NPPB SCH ×4 (02:44→07:15)
[2018-11-27] MEDS: RIVAROXABAN 15 MG TABLET PO SCH (05:49)
[2018-11-27] MEDS: AMPICILLIN/SULBACTAM 3 GM in SODIUM CHLORIDE 0.9% 100 ML IV SCH ×4 (05:49→22:43)
[2018-11-27] MEDS: ALBUTEROL SULFATE 2.5 MG/3 ML NPPB PRN (07:15)
[2018-11-27 07:46] VITALS: BP 127/71
[2018-11-27] MEDS: OMEPRAZOLE 20 MG CAPSULE.DR PO SCH (08:08)
[2018-11-27] MEDS: LACTOBACILLUS CHEW TABLET PO SCH ×3 (08:08→21:03)
[2018-11-27] MEDS: DILTIAZEM 30 MG TABLET PO SCH ×3 (08:09→21:03)
[2018-11-27] MEDS: POLYETHYLENE GLYCOL 17 GM PACKET PO PRN (08:09)
[2018-11-27] MEDS: SENNA/DOCUSATE TABLET PO SCH (08:09)
[2018-11-27] MEDS: AMIODARONE 200 MG TABLET PO SCH (08:09)
[2018-11-27 12:13] VITALS: BP 114/67
[2018-11-27] MEDS: VANCOMYCIN 1,300 MG in SODIUM CHLORIDE 0.9% 250 ML IV SCH (13:40)
[2018-11-27] MEDS: ALBUTEROL/IPRATROPIUM 2.5MG/0.5MG, 3 ML NPPB SCH ×2 (14:24→20:37)
[2018-11-27 19:01] VITALS: BP 128/76
[2018-11-27] MEDS: ATORVASTATIN 40 MG TABLET PO SCH (21:03)
[2018-11-28 01:32] VITALS: BP 125/78
[2018-11-28 05:00] LABS: ANION GAP 3 mmol/L (5-15); CHLORIDE 107 mmol/L (98-107); CREATININE 0.81 mg/dL (0.7-1.3)
[2018-11-28] MEDS: ALBUTEROL/IPRATROPIUM 2.5MG/0.5MG, 3 ML NPPB SCH ×4 (05:00→20:30)
[2018-11-28] MEDS: AMPICILLIN/SULBACTAM 3 GM in SODIUM CHLORIDE 0.9% 100 ML IV SCH (05:48)
[2018-11-28] MEDS: RIVAROXABAN 15 MG TABLET PO SCH (05:48)
[2018-11-28 06:50] VITALS: BP 136/81
[2018-11-28 08:25] VITALS: BP 117/82
[2018-11-28] MEDS: DILTIAZEM 30 MG TABLET PO SCH (08:25)
[2018-11-28] MEDS: FUROSEMIDE 40 MG TABLET PO SCH (08:25)
[2018-11-28] MEDS: SENNA/DOCUSATE TABLET PO SCH (08:25)
[2018-11-28] MEDS: AMIODARONE 200 MG TABLET PO SCH (08:26)
[2018-11-28] MEDS: LACTOBACILLUS CHEW TABLET PO SCH ×3 (08:26→20:22)
[2018-11-28] MEDS: OMEPRAZOLE 20 MG CAPSULE.DR PO SCH (08:26)
[2018-11-28] MEDS: DILTIAZEM 240 MG CAP.ER.24H PO SCH (11:48)
[2018-11-28 14:19] VITALS: BP 124/71
[2018-11-28] MEDS: VANCOMYCIN 1,300 MG in SODIUM CHLORIDE 0.9% 250 ML IV SCH (14:30)
[2018-11-28 18:41] VITALS: BP 118/72
[2018-11-28] MEDS: ATORVASTATIN 40 MG TABLET PO SCH (20:21)
[2018-11-29 00:11] VITALS: BP 122/71
[2018-11-29] MEDS ORDERED: VANCOMYCIN PMX 1GM/200ML 200 ML IVPB SCH (02:00)
[2018-11-29] MEDS: ALBUTEROL/IPRATROPIUM 2.5MG/0.5MG, 3 ML NPPB SCH ×4 (03:30→19:29)
[2018-11-29] MEDS: RIVAROXABAN 15 MG TABLET PO SCH (05:30)
[2018-11-29 07:40] VITALS: BP 131/77
[2018-11-29] MEDS: DILTIAZEM 240 MG CAP.ER.24H PO SCH (10:06)
[2018-11-29] MEDS: AMIODARONE 200 MG TABLET PO SCH (10:06)
[2018-11-29] MEDS: SENNA/DOCUSATE TABLET PO SCH (10:06)
[2018-11-29] MEDS: LACTOBACILLUS CHEW TABLET PO SCH ×3 (10:06→21:19)
[2018-11-29] MEDS: OMEPRAZOLE 20 MG CAPSULE.DR PO SCH (10:06)
[2018-11-29 15:30] VITALS: BP 111/53
[2018-11-29] MEDS: DAPTOMYCIN 400 MG in SODIUM CHLORIDE 0.9% 100 ML IVPB SCH (15:54)
[2018-11-29] MEDS: POLYETHYLENE GLYCOL 17 GM PACKET PO PRN (16:01)
[2018-11-29 21:00] VITALS: BP 107/69
[2018-11-29] MEDS: ATORVASTATIN 40 MG TABLET PO SCH (21:19)
[2018-11-30 01:54] VITALS: BP 139/78
[2018-11-30] MEDS: ALBUTEROL/IPRATROPIUM 2.5MG/0.5MG, 3 ML NPPB SCH ×4 (02:13→20:53)
[2018-11-30] MEDS: RIVAROXABAN 15 MG TABLET PO SCH (05:22)
[2018-11-30 08:00] VITALS: BP 123/75
[2018-11-30] MEDS: LACTOBACILLUS CHEW TABLET PO SCH ×3 (09:37→20:30)
[2018-11-30] MEDS: OMEPRAZOLE 20 MG CAPSULE.DR PO SCH (09:37)
[2018-11-30] MEDS: SENNA/DOCUSATE TABLET PO SCH (09:37)
[2018-11-30] MEDS: FUROSEMIDE 40 MG TABLET PO SCH (09:38)
[2018-11-30] MEDS: AMIODARONE 200 MG TABLET PO SCH (09:38)
[2018-11-30] MEDS: DILTIAZEM 240 MG CAP.ER.24H PO SCH (09:38)
[2018-11-30 14:00] VITALS: BP 126/67
[2018-11-30] MEDS: DAPTOMYCIN 400 MG in SODIUM CHLORIDE 0.9% 100 ML IVPB SCH (16:09)
[2018-11-30 19:47] VITALS: BP 124/63
[2018-12-01 01:56] VITALS: BP 129/70
[2018-12-01] MEDS: ALBUTEROL/IPRATROPIUM 2.5MG/0.5MG, 3 ML NPPB SCH ×3 (02:30→13:55)
[2018-12-01] MEDS: RIVAROXABAN 15 MG TABLET PO SCH (05:31)
[2018-12-01 08:23] VITALS: BP 129/78
[2018-12-01] MEDS: OMEPRAZOLE 20 MG CAPSULE.DR PO SCH (09:29)
[2018-12-01] MEDS: AMIODARONE 200 MG TABLET PO SCH (09:30)
[2018-12-01] MEDS: DILTIAZEM 240 MG CAP.ER.24H PO SCH (09:30)
[2018-12-01] MEDS: LACTOBACILLUS CHEW TABLET PO SCH ×2 (09:30→16:37)
[2018-12-01] MEDS: SENNA/DOCUSATE TABLET PO SCH (09:30)
[2018-12-01] MEDS ORDERED: CEFTRIAXONE PMX 2GM/50ML 50 ML IV SCH (10:00)
[2018-12-01] MEDS ORDERED: FUROSEMIDE 40 MG/4 ML IV ONE (10:00)
[2018-12-01 12:18] VITALS: BP 124/75
[2018-12-01] MEDS ORDERED: SENN-177 PO (13:24)
[2018-12-01] MEDS ORDERED: DAPT500V6 IV (13:24)
[2018-12-01] MEDS ORDERED: IPRA3AMP30 NPPB (13:24)
[2018-12-01] MEDS ORDERED: DILT240C55 PO (13:24)
[2018-12-01] MEDS ORDERED: CEFT2PIG2 IV (13:24)
[2018-12-01] MEDS: DAPTOMYCIN 400 MG in SODIUM CHLORIDE 0.9% 100 ML IVPB SCH (16:37)
== END 2018-12-01 15:45 | DRG 871 ==
LOC: ED 17:15 → EDIP 17:26 → 4WST 18:08
PROVIDERS: ADMIT Internal Medicine; ATTEND Internal Medicine
PROC: 02HV33Z Insertion of Infusion Device into Superior Vena Cava, Percutaneous Approach (ICD-10-PCS; principal; 2018-11-29)
PROC: B548ZZA Ultrasonography of Superior Vena Cava, Guidance (ICD-10-PCS; 2018-11-29)
DX: A41.02 Sepsis due to Methicillin resistant Staphylococcus aureus (principal); N17.0 Acute kidney failure with tubular necrosis; E43 Unspecified severe protein-calorie malnutrition; J18.9 Pneumonia, unspecified organism; J96.21 Acute and chronic respiratory failure with hypoxia; D68.59 Other primary thrombophilia; I48.92 Unspecified atrial flutter; J44.0 Chronic obstructive pulmonary disease with (acute) lower respiratory infection; D75.1 Secondary polycythemia; E11.9 Type 2 diabetes mellitus without complications; E78.5 Hyperlipidemia, unspecified; E86.0 Dehydration; E86.1 Hypovolemia; Z68.25 Body mass index [BMI] 25.0-25.9, adult; I11.0 Hypertensive heart disease with heart failure; I27.20 Pulmonary hypertension, unspecified; I48.0 Paroxysmal atrial fibrillation; I50.9 Heart failure, unspecified; K13.0 Diseases of lips; M10.9 Gout, unspecified; S01.511A Laceration without foreign body of lip, initial encounter; Z79.01 Long term (current) use of anticoagulants; I25.2 Old myocardial infarction; Z79.899 Other long term (current) drug therapy; Z87.891 Personal history of nicotine dependence; Z99.81 Dependence on supplemental oxygen; W26.8XXA Contact with other sharp object(s), not elsewhere classified, initial encounter; Y93.89 Activity, other specified; Y92.89 Other specified places as the place of occurrence of the external cause; Y99.8 Other external cause status
CPT/HCPCS: 36415; 36573; 70487; 71045; 71046; 71275; 80048; 80053; 80202; 82247; 82550; 82962; 83605; 83735; 84100; 84484; 85025; 85610; 85730; 87040; 87077; 87147; 87186; 93005; 93306; 94640; G0378; J0295; J0696; J0878; J1940; J2020; J3370; J7613; J7620; J7644; Q9967; C1751; J7030; J7050

== ENCOUNTER 2019-06-21 00:08 | Inpatient (IN) | payer MEDICAID, OTHER ==
[~2019-06-21] VITALS: Ht 162.6 cm; Wt 63.1 kg
[~2019-06-21 00:08] MED LIST changes: +CEFT2PIG2 IV; +DAPT500V6 IV; +DILT240C55 PO; +INDO50CA15 PO; -INDO50CA5 PO; +IPRA3AMP30 NPPB; +PRED5TAB19 PO; +SENN-177 PO
--- NOTE | 2019-06-21 00:32 | NUR ---
Pt seen at urgent care a couple hours ago and told to come here for "water on his lungs". Pt states R sided facial swellingxmultiple days and presents w/ "packing and ointment" in R nostril. Minimal to no swelling noted to bilateral face. Pt baseline of 6 L nc. Monitoring applied. Vss. Call light within reach. Family at bedside.
--- NOTE | 2019-06-21 00:41 | NUR ---
ASSUMED CARE OF PT. FROM APARNA GUERRA VIA BS REPORT. LAB AT BS AT THIS TIME. POC DISCUSSED.
[2019-06-21 00:52] LABS: BASOPHILS # (AUTO) 0.02 x10^3/uL (0-0.1); BASOPHILS % (AUTO) 0 % (0-1); EOSINOPHILS # (AUTO) 0.17 x10^3/uL (0-0.4); EOSINOPHILS % (AUTO) 2 % (1-7); LYMPHOCYTES # (AUTO) 0.55 x10^3/uL (1-3.4); LYMPHOCYTES % (AUTO) 5 % (22-44); MD NO; MEAN CORPUSCULAR HEMOGLOBIN 31.7 pg (27.5-34.5); MEAN CORPUSCULAR HGB CONC 31.4 g/dL (33.2-36.2); MEAN CORPUSCULAR VOLUME 100.8 fL (81-97); MEAN PLATELET VOLUME 6.8 fL (7.4-10.4); MONOCYTES # (AUTO) 0.24 x10^3/uL (0.2-0.8); MONOCYTES % (AUTO) 2 % (2-9); NEUTROPHILS % (AUTO) 90 % (42-75); PLATELET COUNT 240 x10^3/uL (130-400); RED BLOOD COUNT 3.78 x10^6/uL (4.38-5.82); RED CELL DISTRIBUTION WIDTH 16.4 % (9.4-14.8)
[2019-06-21] MEDS ORDERED: SODIUM CHLORIDE FLUSH 10ML SYR IVF ONE (01:00)
--- NOTE | 2019-06-21 01:03 | NUR ---
EKG COMPLETED AT THIS TIME.
[2019-06-21 01:08] LABS: ALANINE AMINOTRANSFERASE 55 U/L (12-78); ALBUMIN 3.2 g/dL (3.4-5.0); ANION GAP 6 mmol/L (5-15); CALCIUM 8.7 mg/dL (8.5-10.1); CHLORIDE 101 mmol/L (98-107); CREATININE 1.51 mg/dL (0.7-1.3)
[2019-06-21 01:12] LABS: ALKALINE PHOSPHATASE 66 U/L (45-117); TOTAL PROTEIN 6.8 g/dL (6.4-8.2)
[2019-06-21 01:20] LABS: TROPONIN I 0.072 ng/mL (0.000-0.045)
[2019-06-21] MEDS ORDERED: ASPIRIN 325 MG TABLET PO STA (01:24)
[2019-06-21] MEDS ORDERED: FUROSEMIDE 40 MG/4 ML IV ONE (01:30)
--- NOTE | 2019-06-21 01:40 | NUR ---
DR. LYNCH WAS IN TO DISCUSS PLAN FOR ADMISSION WITH PT. AND FAMILY. WORKING ON IV ACCESS. 2 FAILED ATTEMPTS. PT. VISITING WITH FAMILY AND NO ACUTE DISTRESS NOTED.
[2019-06-21] MEDS ORDERED: CARV3.122 PO (01:52)
[2019-06-21] MEDS ORDERED: FURO-92 PO (01:52)
[2019-06-21] MEDS ORDERED: PRED10TA14 PO (01:52)
[2019-06-21] MEDS ORDERED: POTA20TA14 PO (01:52)
[2019-06-21] MEDS ORDERED: MONT10TA6 PO (01:52)
--- NOTE | 2019-06-21 01:52 | NUR ---
STILL WORKING ON IV ACCESS AT THIS TIME. MED REC COMPLETED.
--- NOTE | 2019-06-21 02:08 | NUR ---
REPORT TO APARNA HUBER. FLOOR READY FOR PT. TRANSPORT. WORKING ON IV ACCESS PRIOR TO TRANSPORT.
[2019-06-21] MEDS ORDERED: FUROSEMIDE 40 MG/4 ML ONE (02:11)
[2019-06-21] MEDS ORDERED: ASPIRIN 81 MG TABLET CHEW ONE (02:11)
--- NOTE | 2019-06-21 02:18 | NUR ---
CONTIUING TO ATTEMPT IV ACCESS.
[2019-06-21 02:53] VITALS: BP 130/64
[2019-06-21] MEDS ORDERED: MUPI15CR9 NAS (02:58)
[2019-06-21] MEDS ORDERED: RIVAROXABAN 15 MG TABLET PO SCH (06:00)
[2019-06-21] MEDS ORDERED: LIDODERM 5% PATCH TD PRN (06:00)
[2019-06-21] MEDS ORDERED: PHARMACY MAY ADJ FOR RENAL FX MC PRN (06:00)
[2019-06-21 07:42] LABS: TROPONIN I 0.062 ng/mL (0.000-0.045)
[2019-06-21 08:43] VITALS: BP 104/58
[2019-06-21] MEDS: (Macitentan** (Opsumit**) 10 MG) HOMEMEDPO SCH (09:00)
[2019-06-21] MEDS: FUROSEMIDE 40 MG/4 ML IV SCH ×2 (09:18→16:25)
[2019-06-21] MEDS: CARVEDILOL 3.125 MG TABLET PO SCH (09:19)
[2019-06-21] MEDS: AMIODARONE 200 MG TABLET PO SCH (09:19)
[2019-06-21] MEDS: MONTELUKAST 10 MG TABLET PO SCH (09:19)
[2019-06-21 13:17] LABS: TROPONIN I 0.059 ng/mL (0.000-0.045)
[2019-06-21 13:44] VITALS: BP 92/44
[2019-06-21 16:06] VITALS: BP 104/60
[2019-06-21] MEDS: ACETAMINOPHEN 325 MG TABLET PO PRN (16:25)
[2019-06-21] MEDS: ATORVASTATIN 40 MG TABLET PO SCH (20:51)
[2019-06-21 20:59] VITALS: BP 107/57
[2019-06-21] MEDS: TEMAZEPAM 15 MG CAPSULE PO PRN (23:14)
[2019-06-22 01:26] VITALS: BP 103/53
[2019-06-22 05:21] LABS: BASOPHILS % (AUTO) 0 % (0-1); EOSINOPHILS # (AUTO) 0.14 x10^3/uL (0-0.4); EOSINOPHILS % (AUTO) 2 % (1-7); LYMPHOCYTES # (AUTO) 0.91 x10^3/uL (1-3.4); LYMPHOCYTES % (AUTO) 13 % (22-44); MD NO; MEAN CORPUSCULAR HEMOGLOBIN 31.9 pg (27.5-34.5); MEAN CORPUSCULAR HGB CONC 31.9 g/dL (33.2-36.2); MEAN PLATELET VOLUME 7.1 fL (7.4-10.4); MONOCYTES % (AUTO) 9 % (2-9); NEUTROPHILS # (AUTO) 5.14 x10^3/uL (1.8-6.8); NEUTROPHILS % (AUTO) 76 % (42-75); PLATELET COUNT 194 x10^3/uL (130-400); RED BLOOD COUNT 3.08 x10^6/uL (4.38-5.82); RED CELL DISTRIBUTION WIDTH 15.9 % (9.4-14.8)
[2019-06-22 05:23] LABS: CHLORIDE 101 mmol/L (98-107)
[2019-06-22 05:29] LABS: CREATININE 1.43 mg/dL (0.7-1.3)
[2019-06-22 05:42] LABS: ANION GAP 6 mmol/L (5-15)
[2019-06-22 06:37] VITALS: BP 103/61
[2019-06-22] MEDS: (Macitentan** (Opsumit**) 10 MG) HOMEMEDPO SCH (08:29)
[2019-06-22] MEDS: MONTELUKAST 10 MG TABLET PO SCH (08:29)
[2019-06-22] MEDS: FUROSEMIDE 40 MG/4 ML IV SCH (08:29)
[2019-06-22 08:31] VITALS: BP 93/51
[2019-06-22] MEDS: AMIODARONE 200 MG TABLET PO SCH (08:49)
[2019-06-22] MEDS: CARVEDILOL 3.125 MG TABLET PO SCH (08:49)
[2019-06-22] MEDS: AMPICILLIN/SULBACTAM 1,500 MG in SODIUM CHLORIDE 0.9% 50 ML IV SCH ×3 (11:25→22:13)
[2019-06-22 13:48] VITALS: BP 105/61
[2019-06-22] MEDS ORDERED: OMNIPAQUE 350 MG/ML, 75ML BOTTLE ONE (14:40)
[2019-06-22] MEDS: RIVAROXABAN 15 MG TABLET PO SCH (17:43)
[2019-06-22 19:45] VITALS: BP 110/57
[2019-06-22] MEDS: ATORVASTATIN 40 MG TABLET PO SCH (21:37)
[2019-06-22] MEDS: TEMAZEPAM 15 MG CAPSULE PO PRN (22:13)
[2019-06-22] MEDS: ACETAMINOPHEN 325 MG TABLET PO PRN (22:13)
[2019-06-23 01:06] VITALS: BP 117/59
[2019-06-23] MEDS: AMPICILLIN/SULBACTAM 1,500 MG in SODIUM CHLORIDE 0.9% 50 ML IV SCH ×4 (04:15→23:14)
[2019-06-23 04:54] LABS: BASOPHILS # (AUTO) 0.05 x10^3/uL (0-0.1); BASOPHILS % (AUTO) 1 % (0-1); EOSINOPHILS # (AUTO) 0.11 x10^3/uL (0-0.4); EOSINOPHILS % (AUTO) 2 % (1-7); LYMPHOCYTES # (AUTO) 0.73 x10^3/uL (1-3.4); LYMPHOCYTES % (AUTO) 11 % (22-44); MD NO; MEAN CORPUSCULAR HEMOGLOBIN 31.7 pg (27.5-34.5); MEAN CORPUSCULAR HGB CONC 31.7 g/dL (33.2-36.2); MEAN CORPUSCULAR VOLUME 100.1 fL (81-97); MEAN PLATELET VOLUME 6.9 fL (7.4-10.4); MONOCYTES # (AUTO) 0.58 x10^3/uL (0.2-0.8); MONOCYTES % (AUTO) 9 % (2-9); NEUTROPHILS # (AUTO) 5.39 x10^3/uL (1.8-6.8); NEUTROPHILS % (AUTO) 79 % (42-75); PLATELET COUNT 217 x10^3/uL (130-400); RED BLOOD COUNT 3.13 x10^6/uL (4.38-5.82); RED CELL DISTRIBUTION WIDTH 16.5 % (9.4-14.8)
[2019-06-23 05:05] LABS: ANION GAP 2 mmol/L (5-15); CALCIUM 8.1 mg/dL (8.5-10.1); CHLORIDE 104 mmol/L (98-107)
[2019-06-23] MEDS ORDERED: LACTULOSE 20 GM/30 ML UDC PO PRN (08:00)
[2019-06-23] MEDS ORDERED: BISACODYL 10 MG SUPP PR PRN (08:00)
[2019-06-23 08:18] VITALS: BP 118/67
[2019-06-23] MEDS: (Macitentan** (Opsumit**) 10 MG) HOMEMEDPO SCH (09:00)
[2019-06-23] MEDS ORDERED: FUROSEMIDE 40 MG/4 ML IV SCH (09:00)
[2019-06-23] MEDS ORDERED: morphine SULFATE 10 MG/ML, 1ML ONE (10:53)
[2019-06-23] MEDS ORDERED: morphine SULFATE 10 MG/ML, 1ML IVPush ONE (11:00)
[2019-06-23 12:35] VITALS: BP 122/61
--- NOTE | 2019-06-23 15:15 | NUR ---
REC PUREE/THIN; swallow precautions sheet posted at bedside Addendum: 06/23/19 at [address] Amended: Links added.
[2019-06-23] MEDS: MONTELUKAST 10 MG TABLET PO SCH (17:28)
[2019-06-23] MEDS: AMIODARONE 200 MG TABLET PO SCH (17:28)
[2019-06-23] MEDS: CARVEDILOL 3.125 MG TABLET PO SCH (17:28)
[2019-06-23] MEDS: RIVAROXABAN 15 MG TABLET PO SCH (17:29)
[2019-06-23] MEDS: DOCUSATE 100 MG CAPSULE PO SCH (17:29)
[2019-06-23 19:17] VITALS: BP 119/59
[2019-06-23] MEDS: SENNA/DOCUSATE TABLET PO SCH (22:22)
[2019-06-23] MEDS: ATORVASTATIN 40 MG TABLET PO SCH (22:22)
[2019-06-24 03:22] VITALS: BP 104/50
[2019-06-24] MEDS: AMPICILLIN/SULBACTAM 1,500 MG in SODIUM CHLORIDE 0.9% 50 ML IV SCH (04:42)
[2019-06-24 05:41] LABS: ANION GAP 3 mmol/L (5-15); CALCIUM 8.2 mg/dL (8.5-10.1); CHLORIDE 106 mmol/L (98-107)
[2019-06-24 05:44] LABS: CREATININE 0.99 mg/dL (0.7-1.3)
[2019-06-24 07:10] VITALS: BP 108/51
[2019-06-24] MEDS: (Macitentan** (Opsumit**) 10 MG) HOMEMEDPO SCH (09:00)
[2019-06-24] MEDS: AMPICILLIN/SULBACTAM 3 GM in SODIUM CHLORIDE 0.9% 100 ML IV SCH ×3 (09:30→21:58)
[2019-06-24] MEDS: AMIODARONE 200 MG TABLET PO SCH (09:30)
[2019-06-24] MEDS: LINEZOLID 600 MG TABLET PO SCH ×2 (09:30→21:58)
[2019-06-24] MEDS: CARVEDILOL 3.125 MG TABLET PO SCH (09:30)
[2019-06-24] MEDS: MONTELUKAST 10 MG TABLET PO SCH (09:30)
[2019-06-24] MEDS: DOCUSATE 100 MG CAPSULE PO SCH (09:30)
[2019-06-24 12:26] VITALS: BP 99/46
[2019-06-24] MEDS ORDERED: ALBUTEROL/IPRATROPIUM 2.5MG/0.5MG, 3 ML IPPB SCH (15:00)
[2019-06-24] MEDS: RIVAROXABAN 15 MG TABLET PO SCH (17:15)
[2019-06-24] MEDS: ALBUTEROL/IPRATROPIUM 2.5MG/0.5MG, 3 ML NPPB SCH (20:47)
[2019-06-24] MEDS: BUDESONIDE 0.5 MG/2 ML INHA NPPB SCH (20:47)
[2019-06-24 21:31] VITALS: BP 111/59
[2019-06-24] MEDS: SENNA/DOCUSATE TABLET PO SCH (21:58)
[2019-06-24] MEDS: ATORVASTATIN 40 MG TABLET PO SCH (21:58)
[2019-06-25 00:46] VITALS: BP 107/88
[2019-06-25] MEDS: AMPICILLIN/SULBACTAM 3 GM in SODIUM CHLORIDE 0.9% 100 ML IV SCH ×2 (02:51→09:52)
[2019-06-25 05:39] LABS: BASOPHILS # (AUTO) 0.01 x10^3/uL (0-0.1); BASOPHILS % (AUTO) 0 % (0-1); EOSINOPHILS # (AUTO) 0.06 x10^3/uL (0-0.4); EOSINOPHILS % (AUTO) 1 % (1-7); LYMPHOCYTES # (AUTO) 0.73 x10^3/uL (1-3.4); LYMPHOCYTES % (AUTO) 12 % (22-44); MD NO; MEAN CORPUSCULAR HEMOGLOBIN 31.5 pg (27.5-34.5); MEAN CORPUSCULAR HGB CONC 31.4 g/dL (33.2-36.2); MEAN CORPUSCULAR VOLUME 100.4 fL (81-97); MEAN PLATELET VOLUME 6.6 fL (7.4-10.4); MONOCYTES # (AUTO) 0.54 x10^3/uL (0.2-0.8); MONOCYTES % (AUTO) 9 % (2-9); NEUTROPHILS # (AUTO) 4.55 x10^3/uL (1.8-6.8); NEUTROPHILS % (AUTO) 77 % (42-75); PLATELET COUNT 212 x10^3/uL (130-400); RED BLOOD COUNT 2.91 x10^6/uL (4.38-5.82); RED CELL DISTRIBUTION WIDTH 15.9 % (9.4-14.8)
[2019-06-25 05:48] LABS: CALCIUM 8.3 mg/dL (8.5-10.1); CHLORIDE 107 mmol/L (98-107)
[2019-06-25 05:54] LABS: ALANINE AMINOTRANSFERASE 49 U/L (12-78); ALBUMIN 2.1 g/dL (3.4-5.0); ALKALINE PHOSPHATASE 67 U/L (45-117); ANION GAP 2 mmol/L (5-15); BILIRUBIN,TOTAL 0.5 mg/dL (0.2-1.0); CREATININE 0.93 mg/dL (0.7-1.3)
[2019-06-25 06:44] VITALS: BP 123/62
[2019-06-25] MEDS: BUDESONIDE 0.5 MG/2 ML INHA NPPB SCH (06:55)
[2019-06-25] MEDS: ALBUTEROL/IPRATROPIUM 2.5MG/0.5MG, 3 ML NPPB SCH (06:55)
[2019-06-25] MEDS: DOCUSATE 100 MG CAPSULE PO SCH (09:00)
[2019-06-25] MEDS: MONTELUKAST 10 MG TABLET PO SCH (09:52)
[2019-06-25] MEDS: LINEZOLID 600 MG TABLET PO SCH (09:52)
[2019-06-25] MEDS: CARVEDILOL 3.125 MG TABLET PO SCH (09:52)
[2019-06-25] MEDS: AMIODARONE 200 MG TABLET PO SCH (09:54)
[2019-06-25] MEDS: (Macitentan** (Opsumit**) 10 MG) HOMEMEDPO SCH (09:58)
[2019-06-25 12:08] VITALS: BP 116/64
[2019-06-25] MEDS ORDERED: MACI10TA PO (13:13)
[2019-06-25] MEDS ORDERED: LINE600T15 PO (13:18)
[2019-06-25] MEDS ORDERED: LACT1TAB13 PO (13:18)
[2019-06-25] MEDS ORDERED: AMOX1TAB12 PO (13:18)
[2019-06-25] MEDS ORDERED: FLU VACC QS2019-20 36MOS UP/PF 0.5 ML IM-VACC ONE (15:00)
--- NOTE | 2019-06-25 15:50 | NUR ---
REC GROUND/THIN LIQUIDS; OK TO ADVANCE PATIENT PATIENT BECOMES TOLERABLE TO PAIN WHEN MASTICATING SOLID TEXTURES. NO CONCERNS FOR DYSPHAGIA AT THIS TIME. Addendum: 06/25/19 at 1551 by Bety VAIL Amended: Links added.
[2019-06-25] MEDS ORDERED: AMOXICILLIN/CLAV 875-125MG TABLET PO SCH (21:00)
== END 2019-06-25 17:12 | disposition home health service (06) | DRG 137 ==
LOC: ED 01:05 → EDIP 02:09 → 5SO 02:52
PROVIDERS: ADMIT Family Medicine; ATTEND Internal Medicine
PROC: 0W940ZZ Drainage of Upper Jaw, Open Approach (ICD-10-PCS; principal; 2019-06-21)
DX: M27.2 Inflammatory conditions of jaws (principal); I50.43 Acute on chronic combined systolic (congestive) and diastolic (congestive) heart failure; I13.0 Hypertensive heart and chronic kidney disease with heart failure and stage 1 through stage 4 chronic kidney disease, or unspecified chronic kidney disease; D68.69 Other thrombophilia; I48.20 Chronic atrial fibrillation, unspecified; J96.11 Chronic respiratory failure with hypoxia; I27.20 Pulmonary hypertension, unspecified; B95.62 Methicillin resistant Staphylococcus aureus infection as the cause of diseases classified elsewhere; D75.89 Other specified diseases of blood and blood-forming organs; E78.5 Hyperlipidemia, unspecified; M10.9 Gout, unspecified; W18.30XA Fall on same level, unspecified, initial encounter; I48.0 Paroxysmal atrial fibrillation; J44.9 Chronic obstructive pulmonary disease, unspecified; N18.3 Chronic kidney disease, stage 3 (moderate); Z23 Encounter for immunization; Z79.01 Long term (current) use of anticoagulants; Z87.891 Personal history of nicotine dependence; Z91.19 Patient's noncompliance with other medical treatment and regimen; Z99.81 Dependence on supplemental oxygen
CPT/HCPCS: 36415; 70487; 71046; 80048; 80053; 82607; 83735; 83880; 84100; 84145; 84443; 84484; 85025; 87070; 87077; 87186; 87205; 90686; 93005; 93306; 94640; 99285; G0378; J0295; J1940; J7620; J7626; Q9967; J2270; J7512

== ENCOUNTER 2019-07-01 19:11 | Inpatient (IN) | payer OTHER ==
[~2019-07-01] VITALS: Ht 162.6 cm; Wt 57.8 kg
[~2019-07-01 19:11] MED LIST changes: +AMOX1TAB12 PO; +CARV3.122 PO; +FURO-92 PO; +LACT1TAB13 PO; +LINE600T15 PO; +MONT10TA6 PO; +MUPI15CR9 NAS; +POTA20TA14 PO; +PRED10TA14 PO
[2019-07-01 20:30] LABS: MEAN CORPUSCULAR HEMOGLOBIN 30.5 pg (27.5-34.5); MEAN CORPUSCULAR HGB CONC 31.6 g/dL (33.2-36.2); MEAN CORPUSCULAR VOLUME 96.5 fL (81-97); PLATELET COUNT 344 x10^3/uL (130-400); RED BLOOD COUNT 3.23 x10^6/uL (4.38-5.82); RED CELL DISTRIBUTION WIDTH 16.2 % (9.4-14.8)
--- NOTE | 2019-07-01 20:30 | NUR ---
PT RESTING COMFORTABLE. REPOSITIONED. MONITOR IN PLACE. FAMILY AT BEDSIDE.
[2019-07-01 20:41] LABS: ALANINE AMINOTRANSFERASE 52 U/L (12-78); ALBUMIN 2.8 g/dL (3.4-5.0); ANION GAP 2 mmol/L (5-15); CALCIUM 8.5 mg/dL (8.5-10.1); CHLORIDE 101 mmol/L (98-107); CREATININE 1.71 mg/dL (0.7-1.3)
[2019-07-01 20:45] LABS: ALKALINE PHOSPHATASE 65 U/L (45-117); BILIRUBIN,TOTAL 0.5 mg/dL (0.2-1.0)
[2019-07-01 20:48] LABS: BASOPHILS # (AUTO) 0.03 x10^3/uL (0-0.1); BASOPHILS % (AUTO) 1 % (0-1); EOSINOPHILS % (AUTO) 0 % (1-7); LYMPHOCYTES # (AUTO) 0.63 x10^3/uL (1-3.4); LYMPHOCYTES % (AUTO) 10 % (22-44); MD MORPH REVIEW ONLY; MONOCYTES # (AUTO) 0.33 x10^3/uL (0.2-0.8); MONOCYTES % (AUTO) 5 % (2-9); NEUTROPHILS % (AUTO) 84 % (42-75)
[2019-07-01 20:49] LABS: ANISOCYTOSIS 1+; HYPOCHROMIA 1+; POLYCHROMASIA 1+
[2019-07-01 20:50] LABS: OVALOCYTES 1+; SCHISTOCYTES 1+; TEAR DROPS 1+
[2019-07-01 20:51] LABS: <PLATELET ESTIMATE> ADEQUATE; <PLT MORPHOLOGY> NORMAL PLT MORPH
--- NOTE | 2019-07-01 21:29 | NUR ---
PT ASSISTED WITH URINAL. VOIDED APPROX 150 ML.
[2019-07-01] MEDS ORDERED: FUROSEMIDE 20 MG/2 ML IV ONE (21:33)
[2019-07-01] MEDS ORDERED: FUROSEMIDE 20 MG/2 ML ONE (21:49)
--- NOTE | 2019-07-01 21:50 | NUR ---
TP RN: PT HAS [employer]. CALLED [facility] THEY REPORTED THEY DO NOT TAKE THIS INUSRANCE. CALLED [facility] AND TALKED TO SEGMENTAL PAVING SUPERVISOR, THELMA. WAITING TO HEAR BACK IF THEY CAN TAKE PATIENT.
--- NOTE | 2019-07-01 22:04 | NUR ---
TP RN: SPOKE WITH THELMA AT [facility], PT DENIED TRANSFER. DR TOBAR AWARE.
[2019-07-01] MEDS ORDERED: NITROGLYCERIN SINGLE TAB 0.4 MG SL ONE (22:13)
[2019-07-01] MEDS ORDERED: ONDANSETRON 2MG/ML, 2ML IVPush PRN (23:30)
[2019-07-01] MEDS ORDERED: PHARMACY MAY ADJ FOR RENAL FX MC PRN (23:30)
[2019-07-01] MEDS ORDERED: ACETAMINOPHEN 325 MG TABLET PO PRN (23:30)
[2019-07-01] MEDS ORDERED: hydrALAzine 20 MG/ML, 1ML IVPush PRN (23:30)
[2019-07-01] MEDS ORDERED: DOCUSATE 100 MG CAPSULE PO PRN (23:30)
[2019-07-01] MEDS ORDERED: LIDODERM 5% PATCH TD PRN (23:30)
[2019-07-01 23:38] VITALS: BP 131/70
[2019-07-02] MEDS: ATORVASTATIN 40 MG TABLET PO SCH ×2 (00:17→21:44)
[2019-07-02] MEDS ORDERED: ALBUTEROL/IPRATROPIUM 2.5MG/0.5MG, 3 ML NPPB SCH (03:00)
[2019-07-02 03:18] VITALS: BP 108/48
[2019-07-02] MEDS: RIVAROXABAN 15 MG TABLET PO SCH (05:19)
[2019-07-02 07:19] LABS: CALCIUM 8.3 mg/dL (8.5-10.1); CHLORIDE 103 mmol/L (98-107)
[2019-07-02 07:22] LABS: ANION GAP 5 mmol/L (5-15); CREATININE 1.42 mg/dL (0.7-1.3)
[2019-07-02 07:29] LABS: MEAN CORPUSCULAR HEMOGLOBIN 30.7 pg (27.5-34.5); MEAN CORPUSCULAR HGB CONC 32.2 g/dL (33.2-36.2); MEAN CORPUSCULAR VOLUME 95.3 fL (81-97); PLATELET COUNT 266 x10^3/uL (130-400); RED BLOOD COUNT 2.98 x10^6/uL (4.38-5.82); RED CELL DISTRIBUTION WIDTH 16.4 % (9.4-14.8)
[2019-07-02 07:58] VITALS: BP 129/66
[2019-07-02] MEDS ORDERED: ALBUTEROL/IPRATROPIUM 2.5MG/0.5MG, 3 ML NPPB PRN (08:00)
[2019-07-02 08:48] LABS: BASOPHILS # (AUTO) 0.01 x10^3/uL (0-0.1); BASOPHILS % (AUTO) 0 % (0-1); EOSINOPHILS # (AUTO) 0.02 x10^3/uL (0-0.4); EOSINOPHILS % (AUTO) 0 % (1-7); LYMPHOCYTES % (AUTO) 20 % (22-44); MD SCAN; MONOCYTES # (AUTO) 0.43 x10^3/uL (0.2-0.8); MONOCYTES % (AUTO) 9 % (2-9); NEUTROPHILS # (AUTO) 3.47 x10^3/uL (1.8-6.8); NEUTROPHILS % (AUTO) 70 % (42-75)
[2019-07-02] MEDS: MUPIROCIN OINT 2%, 22GM NAS SCH ×3 (09:00→21:44)
[2019-07-02] MEDS: TEMPLATE NON-FORMULARY MED. (Macitentan** (Opsumit**) 10 MG) HOMEMEDPO SCH (09:00)
[2019-07-02] MEDS ORDERED: FUROSEMIDE 40 MG TABLET PO SCH (09:00)
[2019-07-02] MEDS: FUROSEMIDE 20 MG/2 ML IV SCH ×2 (09:33→16:23)
[2019-07-02] MEDS: CARVEDILOL 3.125 MG TABLET PO SCH (09:33)
[2019-07-02] MEDS: LACTOBACILLUS CHEW TABLET PO SCH (09:34)
[2019-07-02] MEDS: POTASSIUM CHLORIDE 20 MEQ TAB.ER.PRT PO SCH (09:34)
[2019-07-02] MEDS: MONTELUKAST 10 MG TABLET PO SCH (09:34)
[2019-07-02] MEDS: AMIODARONE 200 MG TABLET PO SCH (09:34)
[2019-07-02 12:24] VITALS: BP 112/53
[2019-07-02 21:32] VITALS: BP 102/44
[2019-07-03 01:52] VITALS: BP 105/48
[2019-07-03] MEDS: RIVAROXABAN 15 MG TABLET PO SCH (05:10)
[2019-07-03 06:19] LABS: BASOPHILS # (AUTO) 0.02 x10^3/uL (0-0.1); BASOPHILS % (AUTO) 0 % (0-1); EOSINOPHILS # (AUTO) 0.05 x10^3/uL (0-0.4); EOSINOPHILS % (AUTO) 1 % (1-7); LYMPHOCYTES # (AUTO) 0.81 x10^3/uL (1-3.4); LYMPHOCYTES % (AUTO) 15 % (22-44); MD NO; MEAN CORPUSCULAR HEMOGLOBIN 30.1 pg (27.5-34.5); MEAN CORPUSCULAR HGB CONC 31.8 g/dL (33.2-36.2); MEAN CORPUSCULAR VOLUME 94.5 fL (81-97); MEAN PLATELET VOLUME 5.9 fL (7.4-10.4); MONOCYTES # (AUTO) 0.43 x10^3/uL (0.2-0.8); MONOCYTES % (AUTO) 8 % (2-9); NEUTROPHILS # (AUTO) 3.98 x10^3/uL (1.8-6.8); NEUTROPHILS % (AUTO) 75 % (42-75); PLATELET COUNT 246 x10^3/uL (130-400); RED BLOOD COUNT 3.12 x10^6/uL (4.38-5.82); RED CELL DISTRIBUTION WIDTH 16.5 % (9.4-14.8)
[2019-07-03 06:27] LABS: ALBUMIN 2.5 g/dL (3.4-5.0); ANION GAP 3 mmol/L (5-15); CHLORIDE 101 mmol/L (98-107); CREATININE 1.21 mg/dL (0.7-1.3)
[2019-07-03 07:45] VITALS: BP 112/45
[2019-07-03 07:50] VITALS: BP 112/67
[2019-07-03] MEDS: LACTOBACILLUS CHEW TABLET PO SCH (07:56)
[2019-07-03] MEDS: MONTELUKAST 10 MG TABLET PO SCH (07:56)
[2019-07-03] MEDS: FUROSEMIDE 20 MG/2 ML IV SCH ×2 (07:56→16:17)
[2019-07-03] MEDS: CARVEDILOL 3.125 MG TABLET PO SCH (07:57)
[2019-07-03] MEDS: AMIODARONE 200 MG TABLET PO SCH (07:57)
[2019-07-03] MEDS: POTASSIUM CHLORIDE 20 MEQ TAB.ER.PRT PO SCH (07:57)
[2019-07-03] MEDS: MUPIROCIN OINT 2%, 22GM NAS SCH ×3 (07:58→21:00)
[2019-07-03] MEDS: TEMPLATE NON-FORMULARY MED. (Macitentan** (Opsumit**) 10 MG) HOMEMEDPO SCH (07:58)
[2019-07-03 13:45] VITALS: BP 114/64
[2019-07-03 19:51] VITALS: BP 123/62
[2019-07-03] MEDS: ATORVASTATIN 40 MG TABLET PO SCH (21:00)
[2019-07-04 02:01] VITALS: BP 120/64
[2019-07-04 08:05] VITALS: BP 109/48
[2019-07-04] MEDS: MONTELUKAST 10 MG TABLET PO SCH (08:53)
[2019-07-04] MEDS: AMIODARONE 200 MG TABLET PO SCH (08:53)
[2019-07-04] MEDS: LACTOBACILLUS CHEW TABLET PO SCH (08:53)
[2019-07-04] MEDS: POTASSIUM CHLORIDE 20 MEQ TAB.ER.PRT PO SCH (08:53)
[2019-07-04] MEDS: MUPIROCIN OINT 2%, 22GM NAS SCH ×3 (08:53→20:19)
[2019-07-04] MEDS: RIVAROXABAN 15 MG TABLET PO SCH (08:53)
[2019-07-04] MEDS: CARVEDILOL 3.125 MG TABLET PO SCH (08:54)
[2019-07-04] MEDS: FUROSEMIDE 20 MG/2 ML IV SCH ×2 (08:55→17:45)
[2019-07-04] MEDS: TEMPLATE NON-FORMULARY MED. (Macitentan** (Opsumit**) 10 MG) HOMEMEDPO SCH (08:55)
[2019-07-04 13:32] VITALS: BP 104/56
[2019-07-04 18:59] VITALS: BP 110/52
[2019-07-04] MEDS: ATORVASTATIN 40 MG TABLET PO SCH (20:19)
[2019-07-05 00:14] VITALS: BP 119/65
[2019-07-05] MEDS: RIVAROXABAN 15 MG TABLET PO SCH (05:08)
[2019-07-05 07:38] VITALS: BP 114/52
[2019-07-05] MEDS: MONTELUKAST 10 MG TABLET PO SCH (08:50)
[2019-07-05] MEDS: AMIODARONE 200 MG TABLET PO SCH (08:50)
[2019-07-05] MEDS: LACTOBACILLUS CHEW TABLET PO SCH (08:50)
[2019-07-05] MEDS: CARVEDILOL 3.125 MG TABLET PO SCH (08:51)
[2019-07-05] MEDS: TEMPLATE NON-FORMULARY MED. (Macitentan** (Opsumit**) 10 MG) HOMEMEDPO SCH (08:51)
[2019-07-05] MEDS: MUPIROCIN OINT 2%, 22GM NAS SCH (08:51)
[2019-07-05] MEDS ORDERED: FURO20TA3 PO (09:25)
[2019-07-05] MEDS ORDERED: HYDR-3341 PO (09:25)
[2019-07-05 12:44] VITALS: BP 121/61
== END 2019-07-05 15:07 | disposition hospice, home (50) | DRG 314 ==
LOC: ED 20:19 → EDIP 21:57 → 4EST 23:18
PROVIDERS: ADMIT Family Medicine; ATTEND Internal Medicine
DX: I27.20 Pulmonary hypertension, unspecified (principal); G93.41 Metabolic encephalopathy; J96.20 Acute and chronic respiratory failure, unspecified whether with hypoxia or hypercapnia; L03.116 Cellulitis of left lower limb; D68.59 Other primary thrombophilia; I50.32 Chronic diastolic (congestive) heart failure; J44.1 Chronic obstructive pulmonary disease with (acute) exacerbation; I13.0 Hypertensive heart and chronic kidney disease with heart failure and stage 1 through stage 4 chronic kidney disease, or unspecified chronic kidney disease; J44.9 Chronic obstructive pulmonary disease, unspecified; E87.5 Hyperkalemia; H91.90 Unspecified hearing loss, unspecified ear; I25.2 Old myocardial infarction; I48.91 Unspecified atrial fibrillation; N18.9 Chronic kidney disease, unspecified; Z51.5 Encounter for palliative care; Z79.01 Long term (current) use of anticoagulants; Z87.891 Personal history of nicotine dependence
CPT/HCPCS: 36415; 71045; 80048; 80053; 80069; 83735; 83880; 85025; 93005; 96374; G0378; J1940; J7512